=== PATIENT | female | born 1930 | race Caucasian/White ===

== ENCOUNTER → 2016-12-02 | Outpatient (CLI) | payer OTHER, BC ==
[2016-12-02 12:09] LABS: BASOPHILS # (AUTO) 0.05 10*3/UL; BASOPHILS % (AUTO) 0.6 % (0-1); EOSINOPHILS % (AUTO) 1.3 % (0-8); HEMATOCRIT 40.2 % (37.0-47.0); HEMOGLOBIN 13.4 g/dL (12.0-16.0); IMM GRAN % (AUTO) 0.5 % (0-5); IMM GRAN# (AUTO) 0.04 10*3/UL; LYMPHOCYTES # (AUTO) 1.03 10*3/uL; LYMPHOCYTES % (AUTO) 13.3 % (10-50); MEAN CORPUSCULAR HEMOGLOBIN 29.3 PG (27-31); MEAN CORPUSCULAR HGB CONC 33.3 g/dL (33-37); MEAN PLATELET VOLUME 10.2 FL (7.4-12.2); MONOCYTES # (AUTO) 0.62 10*3/UL (0.3-0.8); NEUTROPHILS # (AUTO) 5.89 10*3/UL; NEUTROPHILS % (AUTO) 76.3 % (50-80); RED BLOOD COUNT 4.57 10^6/uL (4.20-5.40); WHITE BLOOD COUNT 7.73 10^3/uL (4.8-10.8)
[2016-12-02 12:20] LABS: PLATELET MORPHOLOGY COMMENT NORMAL MORPHOLOGY (NORM)
[2016-12-02 12:25] LABS: BILIRUBIN,TOTAL 0.7 mg/dL (0.3-1.2); BUN/CREATININE RATIO 31.25 (6-20); CALCIUM 9.7 mg/dL (8.7-10.7); CREATININE 0.8 mg/dL (0.50-1.20); LDL CHOLESTEROL,CALCULATED 54.8 mg/dL; POTASSIUM 4.7 meq/L (3.8-5.2)
== END ==
LOC: MOB LAB 10:48
DX: E03.9 Hypothyroidism, unspecified (principal); E55.9 Vitamin D deficiency, unspecified
CPT/HCPCS: 36415; 80053; 80061; 82306; 84443; 85025

== ENCOUNTER 2016-12-05 08:32 | Emergency (ER) | payer OTHER, BC ==
[2016-12-05 08:46] VITALS: RESP 20; TEMP 98.2
--- NOTE | 2016-12-05 09:36 | PDOC ---
Fall HPI - General Chief Complaint: Fall Stated Complaint: BACK PAIN Date Seen by Provider: 12/05/16 Time Seen by Provider: 08:40 Source: POSITIVE: Patient Exam Limitations: POSITIVE: No limitations Nurse's Notes Reviewed & Considered: Yes - History of Present Illness Initial Comments: The patient is an 86-year-old female who presents to the emergency department with low back pain after a fall. She states that she has long-standing issues with balance and normally walks with assistance or with a walker. She states that she woke up in the middle of the night for 5 nights ago to go to the bathroom. She states that she lost her footing and fell. She did hit the back of her head however denies any loss of consciousness. After her fall she has increase in lower back pain. She has a history of previous compression fracture and some degree of chronic back pain. She was seen by Dr. Bui 3 days ago and prescribed Ultram. She states that this has not been helping for pain. She denies any radiation of pain down her legs. She does have some urinary incontinence issues which have been chronic. She denies any headache, neck pain or any other associated injuries or complaints. She does not take any blood thinner medications other than aspirin. Have you received a tetanus shot in the past 10 years?: Unknown - Patient Home Medications Home Medications: Home Medications Aspirin 1 tab PO PRN tab 07/12/13 Levothyroxine Sodium 1 tab PO QD #30 tab 09/16/16 Tramadol HCl 0.5 tab PO Q6H PRN #30 tab 12/02/16 Cholecalciferol (Vitamin D3) [Vitamin D3] 1 cap PO QD #30 cap 12/03/16 Diclofenac Sodium 50 mg PO Q12H PRN #20 tablet. 12/05/16 HYDROcodone/APAP 5/325 Tab [A[place] 5/325 Tab] 1 each PO Q6H PRN #20 tablet - Patient Allergies Allergies/Adverse Reactions: Allergies Allergy/AdvReac Type Severity Reaction Status Date / Time No Known Drug Allergies Allergy NOT Verified 12/05/16 08:39 APPLICABLE Past Medical History - heen HEENT History: Denies History Cardiovascular History: Denies History Respiratory History: Denies History Gastrointestinal History: Other (please comment) Additional Gastrointestinal History: CONSTIPATION Genitourinary History: Other (please comment) Additional Genitourinary History: INCONTINENCE Endocrine History: Hypothyroidism Musculoskeletal History: Back Pain, Back Injury, Other (please comment) Prosthesis or Implant: No Additional Musculoskeletal History: "BALANCE ISSUES" Neurological History: Seizures Blood Disorders: Denies History Psychiatric History: Anxiety Disorders History of Sexually Transmitted Diseases: No Obstetrical History: Denies History Cancer History: Denies History In Past Year Been Physically Harmed or Verbally Threatened: No History of MDRO: No History of Other Communicable Diseases: No Tobacco Use: Never Smoker Alcohol Use: None Substance Use Type: None Previous Surgical History: No Type / Date of Surgery: HYSTERECTOMY, CHOLECYSTECTOMY, ADRENAL GLAND REMOVAL, COLON RESECTION Anesthesia Reactions: No Malignant Hyperthermia: No Significant Family History: No pertinent family hx Past Medical History Reviewed: Reviewed - No Changes ROS - Limitations ROS Limitations: No Limitations (Review of systems otherwise noncontributory) Fall Physical Exam - General Appearance General Appearance: POSITIVE: Alert, Cooperative, No Acute Distress - HEENT HEENT: POSITIVE: Head Inspection Nml, Eyes Inspection Nml, Ears Inspection Nml - Neck Neck: POSITIVE: Non Tender, Trachea Midline - Respiratory / CVS Respiratory / CVS: POSITIVE: Breath Sounds Normal, No Respiratory Distress, Heart Sounds Normal, Regular Rate/Rhythm - Abdomen Abdomen: Soft: (All Quadrants), Denies Tenderness: (All Quadrants), No Distention: (All Quadrants) Additional Abdominal Details: Her pelvis is stable and nontender - Skin Skin: POSITIVE: Intact - Back Back: POSITIVE: Other (Examination of her lower back does reveal an area of ecchymosis to the left lower lumbar region, there is no obvious bony deformity or significant swelling) - Extremities Extremity Assessment: Normal ROM: (ALL), Normal Inspection: (ALL) Additional Extremities Details: No focal neurologic deficits in her legs Fall Progress - Results Reviewed by me Xrays/CTs/US Reviewed by me: Yes Radiology Findings: X-ray of the lumbar spine reveals advanced degenerative changes, she does have findings consistent with compression fracture of the L1 vertebrae which was present on a previous lumbar spine film from 2015. No acute fracture - Patient's Progress MDM / ED Course: X-ray findings were discussed with the patient and her family member. There is not appear to be any evidence of acute fracture. She was placed on diclofenac 50 mg twice a day as an anti-inflammatory and given prescriptions for Auxvasse as needed for pain. She is advised return to the emergency room if any worsening or change in symptoms. She'll follow-up with Dr. Bui in 5-7 days. - Consult Counseled: POSITIVE: Patient, Family, RE: Radiology Results, RE: DX, RE: Need for F/U Patient Care Time - Estimated PCT Patient Care Time (In Minutes): 15 Vital Signs - Recent Vital Signs Vital Signs: Vital Signs (Last 8 hours) Temp Pulse Resp BP Pulse Ox 12/05/16 08:34 98.2 F 81 20 127/80 92 - VS Reviewed Vital Signs Reviewed: Yes Discharge Clinical Impression: Low back pain Condition: Fair Prescriptions / Orders: Diclofenac Sodium 50 mg PO Q12H PRN #20 tablet. PRJustin Reason: Pain HYDROcodone/APAP 5/325 Tab [A[place]se 5/325 Tab] 1 each PO Q6H PRN #20 tablet PRN Reason: Pain Patient Instructions Given at Discharge: Back Pain (ED) Additional Instructions: The x-ray of your back done in the emergency room today does show an old compression fracture in your lower back as well as arthritic changes, no evidence of new fractures. Recommend diclofenac 50 mg twice a day as needed for pain. In addition your been prescribed Auxvasse 5/325 which he can take one every 4-6 hours as needed for pain. This medication may make you sleepy and should probably only be taken at night. Return to the emergency room if increased pain, numbness or weakness in her legs, any worsening or change in symptoms. Recommend follow-up with Dr. Bui in 5-7 days. Follow Up With: RAHEEM BUI [Primary Care Provider] -
--- NOTE | 2016-12-05 09:41 | DI ---
LUMBAR SPINE SERIES, 12/05/2016 8:45 AM: Clinical History: Injury. The patient fell. Previous Exam: 10/22/2014. Upright AP and lateral views are submitted. Since the previous exam, the patient has developed osteop orotic compression fractures of T11 and T12 with approximately 50% loss of height. The previous study showed a compression fracture of L1 with loss of height greater than 50% in this fracture now is hea led but there has been progressive loss of height by 80-90%. No definite acute compression fracture i s identified. The lumbar disc spaces are of normal height. There is a grade 1 spondylolisthesis at L4 -5. Degenerative arthritic changes are present in all of the apophyseal joints bilaterally but most s everely between L3-4 and L5-S1. The pedicles and remaining posterior elements are unremarkable. Both SI joints are normal. Readin. No definite acute fracture is identified but this patient does have osteoporosis. 2. There are osteoporotic compression fractures of T11, T12, and L1. By definition, this patient has severe osteoporosis. 3. Grade 1 spondylolisthesis at L4-5 with degenerative arthritic changes in the apophyseal joints mo st severely between L3-4 and L5-S1.
== END 2016-12-05 09:49 | disposition home or self-care (01) ==
LOC: ER 08:32
DX: M54.5 Low back pain (principal); W18.39XA Other fall on same level, initial encounter
CPT/HCPCS: 72100; 99282

== ENCOUNTER → 2017-02-05 | Outpatient (CLI) | payer OTHER, BC ==
[2017-02-05 11:29] LABS: HEMATOCRIT 43.2 % (37.0-47.0); HEMOGLOBIN 14.1 g/dL (12.0-16.0); MEAN CORPUSCULAR HEMOGLOBIN 28.7 PG (27-31); MEAN CORPUSCULAR HGB CONC 32.6 g/dL (33-37); MEAN CORPUSCULAR VOLUME 87.8 FL (81-99); MEAN PLATELET VOLUME 10.1 FL (7.4-12.2); RED BLOOD COUNT 4.92 10^6/uL (4.20-5.40)
[2017-02-05 11:51] LABS: CALCIUM 9.4 mg/dL (8.7-10.7); SERUM ALBUMIN 4.2 g/dL (3.5-4.8)
[2017-02-06 02:58] LABS: VITAMIN D 25-HYDROXY 22.5 NG/ML (30-100)
== END ==
LOC: MOB LAB 10:07
PROVIDERS: ATTEND Nurse Practitioner
DX: M80.88XA Other osteoporosis with current pathological fracture, vertebra(e), initial encounter for fracture (principal)
CPT/HCPCS: 36415; 80053; 82306; 83970; 85027

== ENCOUNTER → 2017-03-17 | Outpatient (CLI) | payer OTHER, BC ==
--- NOTE | 2017-03-17 23:01 | DI ---
MRI CERVICAL SPINE W/O CN,03/17/2017 10:28 AM: Clinical History: Analysis artery and cervical spondylosis. Previous Exam: None at this facility. Findings: Multiplanar MR images are obtained through the cervical spine without contrast. Bony alignment is anatomic. No fractures are seen. There is marrow edema and some compressions are an d deformities involving the T5 vertebral body. There is also some compression of the first thoracic v ertebral body with some mild edema. The spinal cord descends normally with normal course, caliber and signal characteristics. There is a large area of low intensity just posterior to the third thoracic vertebral body extending into the thecal sac and causing some moderate central canal stenosis. The major vascular flow voids are unremarkable. The posterior fossa is unremarkable. Individual intervertebral disc spaces: C2/3: There is some facet hypertrophy and mild uncovertebral joint osteophyte formation on the right contributing to mild right neuroforaminal narrowing. There is no central canal nor left neuroforamina l narrowing. C3/4: There is some disc desiccation, annular fissuring and a broad-based disc bulge with some uncove rtebral joint and facet hypertrophy contributing to mild to moderate central canal stenosis with mode rate to severe left and mild right neuroforaminal narrowing. C4/5: There is disc desiccation, mild facet hypertrophy and uncovertebral osteophytes contributing to mild central canal stenosis with moderate bilateral neuroforaminal narrowing. C5/6: There is disc desiccation, and a 3 mm broad-based disc bulge with some uncovertebral joint oste ophyte formation and some facet hypertrophy contributing to mild to moderate central canal stenosis w ith moderate to severe left and moderate right neuroforaminal narrowing. C6/7: No significant stenosis. C7/T1: There is a broad-based disc bulge without neural foraminal narrowing. Impression: C2/3: There is some facet hypertrophy and mild uncovertebral joint osteophyte formation on the right contributing to mild right neuroforaminal narrowing. There is no central canal nor left neuroforamina l narrowing. C3/4: There is some disc desiccation, annular fissuring and a broad-based disc bulge with some uncove rtebral joint and facet hypertrophy contributing to mild to moderate central canal stenosis with mode rate to severe left and mild right neuroforaminal narrowing. C4/5: There is disc desiccation, mild facet hypertrophy and uncovertebral osteophytes contributing to mild central canal stenosis with moderate bilateral neuroforaminal narrowing. C5/6: There is disc desiccation, and a 3 mm broad-based disc bulge with some uncovertebral joint oste ophyte formation and some facet hypertrophy contributing to mild to moderate central canal stenosis w ith moderate to severe left and moderate right neuroforaminal narrowing. 13 x 8 mm calcification just posterior to the third thoracic vertebral body most likely representing a dystrophic calcification. Compression deformities worst at the T5 level where there is reactive marrow edema. Consider MRI thor acic spine for further evaluation as this would also evaluate the low intensity area at the T3 level.
== END ==
LOC: MRI 10:18
PROVIDERS: ATTEND Nurse Practitioner
DX: M47.812 Spondylosis without myelopathy or radiculopathy, cervical region (principal); R26.81 Unsteadiness on feet; M50.11 Cervical disc disorder with radiculopathy, high cervical region; M50.121 Cervical disc disorder at C4-C5 level with radiculopathy; M47.22 Other spondylosis with radiculopathy, cervical region
CPT/HCPCS: 72141

== ENCOUNTER 2017-04-16 09:05 | Inpatient (IN) | payer OTHER, BC ==
[2017-04-16] MEDS ORDERED: NORMAL SALINE 10 ML SYRINGE FLUSH IVP PRN ×2 (09:39→12:43)
[2017-04-16] MEDS ORDERED: Sodium Chloride 0.9% 1,000 ML PRIMARY IV ONE (09:39)
[2017-04-16 09:55] LABS: BASOPHILS # (AUTO) 0.08 10*3/UL; BASOPHILS % (AUTO) 0.9 % (0-1); EOSINOPHILS # (AUTO) 0.06 10*3/UL; EOSINOPHILS % (AUTO) 0.7 % (0-8); HEMATOCRIT 42.4 % (37.0-47.0); HEMOGLOBIN 14.1 g/dL (12.0-16.0); LYMPHOCYTES # (AUTO) 0.88 10*3/uL; MEAN CORPUSCULAR HEMOGLOBIN 29.2 PG (27-31); MEAN CORPUSCULAR HGB CONC 33.3 g/dL (33-37); MEAN CORPUSCULAR VOLUME 87.8 FL (81-99); MEAN PLATELET VOLUME 9.6 FL (7.4-12.2); MONOCYTES # (AUTO) 0.86 10*3/UL (0.3-0.8); MONOCYTES % (AUTO) 9.4 % (5-15); NEUTROPHILS # (AUTO) 7.23 10*3/UL; NEUTROPHILS % (AUTO) 79.1 % (50-80); RED BLOOD COUNT 4.83 10^6/uL (4.20-5.40)
--- NOTE | 2017-04-16 09:56 | EKG ---
[address] [address] Measurements Intervals [place] Rate: 71 P: 20 AK: 145 QRS: -1 QRSD: 94 T: 17 QT: 408 QTc: 431 Interpretive Statements SINUS RHYTHM Compared to ECG 12/09/2013 08:31:53 Atrial abnormality no longer present Myocardial infarct finding no longer present Electronically Signed On 04-18-17 16:23:35 MDT by Emigdio Najera [id number]
[2017-04-16 10:01] LABS: PLATELET MORPHOLOGY COMMENT NORMAL MORPHOLOGY (NORM); RBC MORPHOLOGY COMMENT NORMAL MORPHOLOGY (NORM); WBC MORPHOLOGY COMMENT NORMAL MORPHOLOGY (NORM)
[2017-04-16 10:10] LABS: BUN/CREATININE RATIO 28.75 (6-20); C-REACTIVE PROTEIN 2.1 mg/dL (0.0-0.9); CALCIUM 9.5 mg/dL (8.7-10.7); MAGNESIUM 1.8 mg/dL (1.6-2.4); SERUM ALBUMIN 4.4 g/dL (3.5-4.8)
[2017-04-16 10:19] LABS: CREATINE KINASE MB 5.18 NG/ML (0.00-5.00); TROPONIN I 0.044 ng/mL (< 0.040)
[2017-04-16 10:38] LABS: COLOR,URINE YELLOW; URINE SAMPLE TYPE CATH SPECIMEN
[2017-04-16 10:39] LABS: AMPHETAMINE SCREEN NEGATIVE (NEG); BILIRUBIN,URINE NEGATIVE (NEG); CANNABINOID SCREEN,URINE NEGATIVE (NEG); CLARITY,URINE CLEAR (CLEAR); COCAINE SCREEN NEGATIVE (NEG); GLUCOSE, URINE (UA) NEGATIVE (NEG); METHADONE URINE SCREEN NEGATIVE (NEG); METHAMPHETAMINES SCREEN,URINE NEGATIVE (NEG); NITRATE,URINE NEGATIVE (NEG); OCCULT BLOOD,URINE NEGATIVE (NEG); OPIATE SCREEN,URINE NEGATIVE (NEG); PROTEIN,URINE NEGATIVE (NEG); URINE SPECIFIC GRAVITY - MAN 1.019; UROBILINOGEN,URINE 0.2 EU/dL (0.2)
--- NOTE | 2017-04-16 11:28 | DI ---
CT HEAD SCAN WITHOUT IV CONTRAST, 04/16/2017 9:41 AM : Clinical History: Fall. Headaches. Previous Exam: None at this facility. Scans are obtained from the foramen magnum to the vertex without IV contrast. The fourth ventricle is of normal size, shape, position and contour. The third and lateral ventricles are moderately dilated but are otherwise normal. There are multiple punctate periventricular white m atter lucencies bilaterally that extend into the watershed territory, consistent with small vessel is chemic disease. This amount of ischemic disease is appropriate for the patient's age. There is severe cerebral and cerebellar atrophy. There are no extracerebral mantles or shift of the midline structur es. Bone window evaluation is normal. The paranasal sinuses are normal. READIN. There is no evidence of an acute intracranial hemorrhagic focus. 2. Small vessel ischemic disease. 3. Severe cerebellar and cerebral atrophy.
--- NOTE | 2017-04-16 11:39 | DI ---
PA /LATERAL CHEST X-RAY, 04/16/2017 9:39 AM : Clinical History: Fall. Previous Exam: None at this facility. There is no acute soft tissue or bony abnormality. There is osteoporosis with multiple compression fr actures in the lower thoracic spine indicating the patient by definition has severe osteoporosis. The re is cardiomegaly without CHF. Since the previous exam, the patient has developed significant left a trial enlargement suggesting mitral valvular disease. Lungs are clear. Mediastinal structures are nor mal. There are no pulmonary nodules. Readin. There is no acute infiltrate or effusion. 2. Cardiomegaly without CHF. Interval development of significant left atrial enlargement. 3. Severe osteoporosis
--- NOTE | 2017-04-16 12:09 | EKG ---
[address] [address] Measurements Intervals [place] Rate: 72 P: 6 CT: 134 QRS: 13 QRSD: 90 T: 47 QT: 424 QTc: 448 Interpretive Statements SINUS RHYTHM Compared to ECG 04/16/2017 10:00:48 No significant changes Electronically Signed On 04-18-17 16:23:50 MDT by Emigdio Najera [id number]
[2017-04-16] MEDS ORDERED: ACETAMINOPHEN 325 MG TABLET PO PRN (12:43)
[2017-04-16] MEDS ORDERED: LIDOCAINE W/ SODIUM BICARB 0.5 ML SYR SUBD PRN (12:43)
[2017-04-16] MEDS ORDERED: ASPIRIN 81 MG (BABY) CHEWABLE TABLET PO ONE (12:43)
[2017-04-16] MEDS ORDERED: ENOXAPARIN SODIUM 60 MG/0.6 ML SYRINGE SUBCUT SCH (13:00)
--- NOTE | 2017-04-16 14:12 | PDOC ---
History and Physical - History of Present Illness Date and Time of Service: 04/16/2017, 1409 Chief Complaint: Fall History of Present Illness: This very pleasant 87-year-old female that has hypothyroidism and is on Synthroid replacement for that who presents to the hospital having had a fall last night. She states she was trying to reach her Gatorade bottle and fell off of her bed and could not get up. She was able to crawl to the phone at some point this morning and called her daughter for assistance. They could not get her up so they called the ambulance. She apparently had a fall yesterday earlier it was placed in bed by one of her friends. She has a significant other that occasionally his living with her that was not present during this fall last night. The patient denies any weakness on one side or the other, slurred speech, and a head CT scan was negative for any acute bleed. I did notice on her laboratory data that her CK-MB and her troponin were mildly elevated. She denies any chest pain. Her chest x-ray was negative for any congestive heart failure in the EKG was negative for any acute myocardial event. The patient has a bruise knee on the left side but she denies any pain there. I think her history is somewhat limited by mild confusion and probable mild dementia. No other exacerbating factors were noted. The patient does admit to falling frequently even with her walker at home. No fevers, chills, cough, nausea or vomiting, diarrhea, or other infectious symptoms. There were no other exacerbating factors identified. The patient denied any syncopal or presyncopal symptoms. Past Medical History Medical History: 1. Hypothyroidism. 2. Frequent falls. 3. Vitamin D deficiency Surgical History: Patient really cannot give me the best surgical history, I got this from review of the medical record: 1. Cholecystectomy. 2. Right carpal tunnel release in 2012. 3. Colon polyps. 4. Bilateral cataract extraction in 2007. 5. Hysterectomy with BSO at age 29. 6. Possible partial colectomy in 2002. 7. Appendectomy Pertinent Family History: Patient has a sister that has gastric cancer, and a sister that recently of a blood clot Past Social History: Has 2 children. Lives alone but does have a significant other that occasionally lives with her as well. Tobacco Use: Never Smoker Substance Use Type: None Alcohol Use: None Medication / Allergies Home Medications: Home Medications Medication Instructions Recorded Confirmed Type Levothyroxine Sodium [Synthroid] 50 mcg PO DAILY 04/16/17 04/16/17 History Allergies/Adverse Reactions: Allergies Allergy/AdvReac Type Severity Reaction Status Date / Time No Known Drug Allergies Allergy NOT Verified 04/16/17 09:09 APPLICABLE Review of Systems - Review of Systems All Systems: Reviewed & No Additional Complaints Except as Stated ROS Unobtainable: Due to Mental Status (I think overall the review of systems is limited by what I suspect his underlying early dementia. The patient was repetitive in her history and could not provide all the details of her systems. I tried to review best when I could and those results are noted below.) - Respiratory Respiratory: REPORTS: Negative System Review - Cardiovascular Cardiovascular: REPORTS: Negative System Review - Musculoskeletal Musculoskeletal: REPORTS: Back Pain (She uses a heating pad for back pain. She states this helps her back pain significantly) - Neurological Neurologic: REPORTS: Weakness, Difficulty Walking (Even with walker), Other ( Frequent falls) - Additonal Details Additional ROS Details: Has hypothyroidism that she takes Synthroid for Exam - Vitals Vital Signs: Vital Signs Temperature 97.9 F Temperature Source Axillary Pulse Rate [Pulse Oximeter] 69 Pulse Rate 73 Respiratory Rate 12 Blood Pressure [Right Arm] 136/76 Blood Pressure 124/70 Pulse Ox 97 Oxygen Delivery Method Room Air Height 4 ft 11 in Weight 117 lb 12.8 oz - General General Appearance: POSITIVE: No Acute Distress, Cooperative - Head Head Exam: POSITIVE: Normal Inspection, Normocephalic, Atraumatic Additional Head Exam Details: Wearing sunglasses - Eye Eye Exam: POSITIVE: No Scleral Icterus - ENT ENT Exam: POSITIVE: Mucous Membranes Moist - Neck Neck Exam: POSITIVE: Normal Inspection, No Tenderness, No Thyromegaly - Respiratory Respiratory Exam: POSITIVE: Clear to Auscultation - Bilaterally, Breathing Non Labored, Normal to Percussion and Palpation - Cardiovascular Cardiovascular Exam: POSITIVE: RRR, No Murmur, No Clicks, No Gallops, No Rubs, No JVD - GI/Abdominal GI/Abdominal Exam: POSITIVE: Normal Bowel Sounds, Non Tender, Non Distended, Soft - Rectal Rectal Exam: POSITIVE: Deferred - External Exam: POSITIVE: Deferred Exam: POSITIVE: Deferred - Extremities Extremities Exam: POSITIVE: No Clubbing Present, No Edema Present, No Cyanosis Present Additional Extremities Exam Details: Bruising and ecchymosis around the left knee, no effusion. This is attributed to crawling to the phone and falling last night. No evidence of skin breakdown on remaining skin exam. - Back Back Exam: POSITIVE: Normal Inspection, No CVA Tenderness - Neurological Neurological Exam: POSITIVE: Alert, Oriented x 3 (Patient was oriented to place , time, and realized that she had fallen but more significant in depth view of the hospital stay was lacking.), No Facial Droop, Speech Intact / Clear, Moves All Extremities Equally - Psychiatric Psychiatric Exam: POSITIVE: Normal Affect, Normal Mood - Integumentary Additional Integumentary Exam Details: Bruising as noted above on left knee Results - Labs CBC and BMP: 04/16/17 09:51 04/16/17 09:51 Labs - Last 24 Hours: Laboratory Results 04/16/17 04/16/17 Range/Units 09:51 10:20 WBC 9.14 (4.8-10.8) 10^3/uL RBC 4.83 (4.20-5.40) 10^6/uL Hgb 14.1 (12.0-16.0) g/dL Hct 42.4 (37.0-47.0) % MCV 87.8 (81-99) FL MCH 29.2 (27-31) PG MCHC 33.3 (33-37) g/dL RDW Std Deviation 43.2 (39-50) fL RDW Coeff of [place] 13.7 (11.5-14.5) % Plt Count 278 (140-350) 10*3/uL MPV 9.6 (7.4-12.2) FL Immature Gran % (Auto) 0.3 (0-5) % Neut % (Auto) 79.1 (50-80) % Lymph % (Auto) 9.6 L (10-50) % [place] % (Auto) 9.4 (5-15) % Eos % (Auto) 0.7 (0-8) % Baso % (Auto) 0.9 (0-1) % Immature Gran # (Auto) 0.03 10*3/UL Neut # (Auto) 7.23 10*3/UL Lymph # (Auto) 0.88 10*3/uL [place] # (Auto) 0.86 H (0.3-0.8) 10*3/UL Eos # (Auto) 0.06 10*3/UL Baso # (Auto) 0.08 10*3/UL WBC Morphology Comment Normal morphology (NORM) Plt Morphology Comment Normal morphology (NORM) RBC Morph Comment Normal morphology (NORM) Sodium 144 (135-145) meq/L Potassium 3.9 (3.8-5.2) meq/L Chloride 108 (98-112) meq/L Carbon Dioxide 26 (23-33) meq/L Anion Gap 10 (5-20) BUN 23 H (7-22) mg/dL Creatinine 0.8 (0.50-1.20) mg/dL Estimated GFR (>60 ml/min/1.73m(2)) BUN/Creatinine Ratio 28.75 H (6-20) Glucose 101 (78-110) mg/dL Calculated Osmolality 301.0 H (267-292) mOsm/kg Calcium 9.5 (8.7-10.7) mg/dL Magnesium 1.8 (1.6-2.4) mg/dL Total Bilirubin 1.0 (0.3-1.2) mg/dL AST 28 (8-39) IU/L ALT 30 (9-52) IU/L Alkaline Phosphatase 66 (38-126) IU/L Total Creatine Kinase 224 H (30-136) IU/L CK-MB (CK-2) 5.18 H (0.00-5.00) NG/ML Troponin I 0.044 H (< 0.040) ng/mL C-Reactive Protein 2.1 H (0.0-0.9) mg/dL Total Protein 7.7 (6.1-8.0) g/dL Albumin 4.4 (3.5-4.8) g/dL Globulin 3.3 (2.50-4.10) g/dL Albumin/Globulin Ratio 1.30 (1.3-2.0) mg/g Ur Collection Type Cath specimen Urine Color Yellow Urine Clarity Clear (CLEAR) Urine pH 5.0 (5.0-8.5) Ur Specific [place] 1.015 (1.005-1.030) U Specif Grav (Refrac) 1.019 Urine Protein Negative (NEG) mg/dl Urine Glucose (UA) Negative (NEG) mg/dL Urine Ketones Trace (NEG) Urine Occult Blood Negative (NEG) Urine Nitrate Negative (NEG) Urine Bilirubin Negative (NEG) Urine Urobilinogen 0.2 (0.2) EU/dL Ur Leukocyte Esterase Negative (NEG) Ur Culture Indicated? Culture not set Urine Opiates Screen Negative (NEG) Ur Buprenorphine Negative (NEG) Ur Oxycodone Screen Negative (NEG) Urine Methadone Screen Negative (NEG) Ur Propoxyphene Screen Negative (NEG) Barbiturate Screen Negative (NEG) U Tricyclic Antidepress Negative (NEG) Phencyclidine Screen Negative (NEG) Amphetamines Screen Negative (NEG) U Methamphetamines Scrn Negative (NEG) Benzodiazepines Screen Negative (NEG) Cocaine Screen Negative (NEG) U Marijuana (THC) Screen Negative (NEG) - EKG Data -: EKG Interpreted by Me Rate: Normal EKG Shows Normal: Sinus Rhythm - Imaging Status: Image Reviewed by Me (Chest x-ray, on my view, appears negative for acute cardiopulmonary disease process, no pneumonia. CT scan, on my view of the head, appears negative for any acute bleed. There is probably some atrophy there.) Assessment and Plan - Patient Problems (1) Elevated troponin Current Visit: Yes Status: Acute Comment: Probable and possible acute coronary syndrome. Need to trend more troponins. (2) Hypothyroidism Current Visit: Yes Status: Acute Qualifiers: Hypothyroidism type: acquired Qualified Description: Acquired hypothyroidism Qualifier Code(s): (E03.9) Hypothyroidism, unspecified (3) Compression fracture Current Visit: Yes Status: Acute (4) Cervical stenosis of spinal canal Current Visit: Yes Status: Acute (5) Falls frequently Current Visit: Yes Status: Acute - Assessment / Plan Additional Assessment/Plan Details: Admit the patient in the intensive care unit if she could very well be having an acute coronary syndrome. At her age of 87, premorbid physical conditioning, I don't know that we shouldn't do any extensive stenting or cardiac workup otherwise, but we will let the labs help us determine the nature of that. I called the patient's daughter, Charlotte, and I have not been able to get ahold of her yet to discuss the plan with her. Check B12 level as it was quite low in 2014. Replace vitamin D. PT and OT to evaluate and treat for weakness and deconditioning. Home evaluation in my mind needs to be done as well. It is quite possible that the patient will not be deemed safe to return home based on her significant increase in falls. On my review of prior spine imaging studies, it is clear that this patient has osteoporosis, multiple thoracic, and lumbar compression fractures. She also has cervical spinal stenosis. Cervical spinal stenosis is probably related to the falls however, the patient is not a surgical candidate with severe osteoporosis or surgical therapy for the spinal issues in the cervical region. Falls probably are also not enhanced in any means by the glaucoma. It is likely this patient may need fdc facility but we will discuss with her daughter further. DO NOT RESUSCITATE/DO NOT INTUBATE For presumed acute coronary syndrome, given aspirin, Lovenox, beta pepe, and check the troponin labs and trend out. It is encouraging the patient does not have chest pain, but it's difficult to know how much to chest but history given the patient's age.
[2017-04-16] MEDS ORDERED: CHOLECALCIFEROL 1000 IU TABLET PO ONE (14:22)
[2017-04-16] MEDS ORDERED: ACETAMINOPHEN 500 MG TABLET PO PRN (18:17)
[2017-04-16] MEDS ORDERED: diphenhydrAMINE 25 MG CAPSULE PO PRN (18:18)
--- NOTE | 2017-04-16 19:17 | PDOC ---
General Adult HPI - General Chief Complaint: Fall Stated Complaint: FELL OUT OF BED/WEAKNESS Date Seen by Provider: 04/16/17 Time Seen by Provider: 09:20 Source: POSITIVE: Patient, EMS, Other (daughter) Exam Limitations: POSITIVE: No limitations Nurse's Notes Reviewed & Considered: Yes EMS Report Reviewed & Considered: Verbal - History of Present Illness Initial Comment: The patient is an 87-year-old female. She is brought to the emergency room by ambulance. Patient states that last night, apparently several hours [employer]ACH[employer]PER[employer], she dropped a Gatorade bottle between her bed and the wall. She bent down to retrieve the bottle and then was not able to get up. She spent the night on the floor. Eventually she managed to crawl to a phone and called her daughter. Her daughter then went to the patient's residence. The patient's daughter was not able to get the patient to stand, so the daughter called the ambulance. Patient normally lives with a soup mixer, who was away at his cabin. Patient states that yesterday she fell onto the floor and was not able to get up. She contacted a friend who came over and helped her up and put her to bed. The patient's daughter states that the patient is falling frequently and is unable to care for herself. Under the best of circumstances she is able to get around marginally with the 8 of a walker. Patient states that she has some "weakness "of both legs. No focal motor deficits. She states she has a problem with chronic headaches. She denies any recent head trauma. No neck or back pain. No chest or abdominal pain. No diarrhea, vomiting, melena, hematochezia, hematemesis, dysuria or hematuria. She denies any cough. No fevers or chills. Patient states she is on no medications except Synthroid. No known allergies. She states that she has for considerable period of time had difficulty with "poor balance". Have you received a tetanus shot in the past 10 years?: Unknown Body Location Affected: REPORTS: Lower Extremity (L) (As above), Lower Extremity (R) (Some erythema to both knees from crawling around on the floor last night and this morning.), Other Timing: REPORTS: Abrupt Duration: <24 hours Severity: Moderate Quality: REPORTS: Other (Some discomfort anterior aspects of both knees from crawling on the floor as above) Context: REPORTS: None Modifying Factors: improves with: Nothing Similar Symptoms Previously: Yes Recent Care Received: REPORTS: Recently Seen, Treated by MD (Has been seen by a nurse practitioner in [place] who ordered a MRI of the cervical spine last week.) Any Prior Injuries Related to Current Complaint?: No - Patient Home Medications Home Medications: Home Medications Levothyroxine Sodium [Synthroid] 50 mcg PO DAILY 04/16/17 - Patient Allergies Allergies/Adverse Reactions: Allergies Allergy/AdvReac Type Severity Reaction Status Date / Time No Known Drug Allergies Allergy NOT Verified 04/16/17 09:09 APPLICABLE Past Medical History - heen HEENT History: Other (please comment) Additional HEENT History: eye lids do not open well- wears dark glasses. Cardiovascular History: Denies History Respiratory History: Denies History Gastrointestinal History: Other (please comment) Additional Gastrointestinal History: CONSTIPATION Genitourinary History: Other (please comment) Additional Genitourinary History: INCONTINENCE Endocrine History: Hypothyroidism Musculoskeletal History: Back Pain, Back Injury, Muscle Weakness, Physical Limitation, Other (please comment) Prosthesis or Implant: No Additional Musculoskeletal History: "BALANCE ISSUES", COMPRESSED SPINE DISK, DIFFICULTIES WALKING Neurological History: Denies History Blood Disorders: Denies History Psychiatric History: Anxiety Disorders History of Sexually Transmitted Diseases: No Female Reproductive History: Hysterectomy Cancer History: Denies History In Past Year Been Physically Harmed or Verbally Threatened: No History of MDRO: Unknown History of Other Communicable Diseases: No Tobacco Use: Never Smoker Alcohol Use: Rarely Substance Use Type: None Previous Surgical History: Yes Type / Date of Surgery: HYSTERECTOMY, CHOLECYSTECTOMY, ADRENAL GLAND REMOVAL, COLON RESECTION, APPENDECTOMY Anesthesia Reactions: No Malignant Hyperthermia: No Family History of Malignant Hyperthermia: No Significant Family History: No pertinent family hx Past Medical History Reviewed: Reviewed - No Changes ROS - Limitations ROS Limitations: No Limitations Constitution: REPORTS: Denies Symptoms Cardiovascular: REPORTS: Denies Cardiac Symptoms Respiratory: REPORTS: Denies Resp Symptoms Neurological: REPORTS: Weakness (Generalized "weakness ") Gastrointestinal: REPORTS: Denies GI Symptoms Endocrine: REPORTS: Denies Symptoms Musculoskeletal: REPORTS: Denies MS Symptoms Genitourinary: REPORTS: Denies Symptoms Eyes: REPORTS: Denies Symptoms ENT: REPORTS: Denies Symptoms Skin: REPORTS: Denies Skin Symptoms Lympathic: REPORTS: Denies Lympathic Symptoms Immunologic: POSITIVE: Denies Symptoms Psychiatric: POSITIVE: Denies Psych Symptoms General Adult Exam - General Appearance General Appearance: POSITIVE: Alert, Cooperative, No Acute Distress. NEGATIVE: No Evidence of Trauma (Some erythema to anterior aspects of both knees from crawling on the floor last night and this morning) - HEENT HEENT: POSITIVE: Head Inspection Nml, Eyes Inspection Nml, Ears Inspection Nml, Nose Inspection Nml, Oral/Dental Inspect. Nml, Pharynx Inspect. Nml, PERRL, EOMI - Pupils Pupil Size: 4 mm: Bilateral (PERRLA) - Neck Neck: POSITIVE: Normal Inspection, Thyroid Normal - Respiratory Respiratory: POSITIVE: No Respiratory Distress, Breath Sounds Normal, Chest Non- Tender - Cardiovascular Cardiovascular: POSITIVE: Regular Rate & Rhythm, No Murmur, No Gallop, PMI Normal Peripheral Pulses: Radial (R): 2+, Radial (L): 2+, Dorsalis-pedis (R): 2+, Dorsalis-pedis (L): 2+ - Abdomen Abdomen: Soft: (All Quadrants), Normal Bowel Sounds: (All Quadrants), Denies Tenderness: (All Quadrants), No Splenomegaly: (All Quadrants), No Hepatomegaly: (All Quadrants), No Guarding: (All Quadrants), No Rebound: (All Quadrants), No Palpable Pulse: (All Quadrants), No Palpabale Mass: (All Quadrants), No Distention: (All Quadrants), No Rigidity: (All Quadrants) - Back Back: POSITIVE: Normal Inspection - Skin Skin: POSITIVE: Erythema (Anterior aspects of both knees) - Extremities Extremity: Non-Tender: (All Extremities), Normal ROM: (All Extremities), Normal Inspection: (All Extremities) - Neurological / Psychological Neurological: POSITIVE: 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 CT scan of head shows age-related changes only. Lab Results Reviewed: Yes Lab Results:: Laboratory Results 04/16/17 04/16/17 Range/Units 09:51 10:20 WBC 9.14 (4.8-10.8) 10^3/uL RBC 4.83 (4.20-5.40) 10^6/uL Hgb 14.1 (12.0-16.0) g/dL Hct 42.4 (37.0-47.0) % MCV 87.8 (81-99) FL MCH 29.2 (27-31) PG MCHC 33.3 (33-37) g/dL RDW Std Deviation 43.2 (39-50) fL RDW Coeff of [place] 13.7 (11.5-14.5) % Plt Count 278 (140-350) 10*3/uL MPV 9.6 (7.4-12.2) FL Immature Gran % (Auto) 0.3 (0-5) % Neut % (Auto) 79.1 (50-80) % Lymph % (Auto) 9.6 L (10-50) % [place] % (Auto) 9.4 (5-15) % Eos % (Auto) 0.7 (0-8) % Baso % (Auto) 0.9 (0-1) % Immature Gran # (Auto) 0.03 10*3/UL Neut # (Auto) 7.23 10*3/UL Lymph # (Auto) 0.88 10*3/uL [place] # (Auto) 0.86 H (0.3-0.8) 10*3/UL Eos # (Auto) 0.06 10*3/UL Baso # (Auto) 0.08 10*3/UL WBC Morphology Comment Normal morphology (NORM) Plt Morphology Comment Normal morphology (NORM) RBC Morph Comment Normal morphology (NORM) Sodium 144 (135-145) meq/L Potassium 3.9 (3.8-5.2) meq/L Chloride 108 (98-112) meq/L Carbon Dioxide 26 (23-33) meq/L Anion Gap 10 (5-20) BUN 23 H (7-22) mg/dL Creatinine 0.8 (0.50-1.20) mg/dL Estimated GFR (>60 ml/min/1.73m(2)) BUN/Creatinine Ratio 28.75 H (6-20) Glucose 101 (78-110) mg/dL Calculated Osmolality 301.0 H (267-292) mOsm/kg Calcium 9.5 (8.7-10.7) mg/dL Magnesium 1.8 (1.6-2.4) mg/dL Total Bilirubin 1.0 (0.3-1.2) mg/dL AST 28 (8-39) IU/L ALT 30 (9-52) IU/L Alkaline Phosphatase 66 (38-126) IU/L Total Creatine Kinase 224 H (30-136) IU/L CK-MB (CK-2) 5.18 H (0.00-5.00) NG/ML Troponin I 0.044 H (< 0.040) ng/mL C-Reactive Protein 2.1 H (0.0-0.9) mg/dL Total Protein 7.7 (6.1-8.0) g/dL Albumin 4.4 (3.5-4.8) g/dL Globulin 3.3 (2.50-4.10) g/dL Albumin/Globulin Ratio 1.30 (1.3-2.0) mg/g Ur Collection Type Cath specimen Urine Color Yellow Urine Clarity Clear (CLEAR) Urine pH 5.0 (5.0-8.5) Ur Specific [place] 1.015 (1.005-1.030) U Specif Grav (Refrac) 1.019 Urine Protein Negative (NEG) mg/dl Urine Glucose (UA) Negative (NEG) mg/dL Urine Ketones Trace (NEG) Urine Occult Blood Negative (NEG) Urine Nitrate Negative (NEG) Urine Bilirubin Negative (NEG) Urine Urobilinogen 0.2 (0.2) EU/dL Ur Leukocyte Esterase Negative (NEG) Ur Culture Indicated? Culture not set Urine Opiates Screen Negative (NEG) Ur Buprenorphine Negative (NEG) Ur Oxycodone Screen Negative (NEG) Urine Methadone Screen Negative (NEG) Ur Propoxyphene Screen Negative (NEG) Barbiturate Screen Negative (NEG) U Tricyclic Antidepress Negative (NEG) Phencyclidine Screen Negative (NEG) Amphetamines Screen Negative (NEG) U Methamphetamines Scrn Negative (NEG) Benzodiazepines Screen Negative (NEG) Cocaine Screen Negative (NEG) U Marijuana (THC) Screen Negative (NEG) EKG Interpreted/Reviewed By Me:: Yes (normal) EKG Interpretation:: POSITIVE: Normal Sinus Rhythm, Normal Rate, Normal Intervals, Normal [place], Normal QRS, Normal ST/T - Patient's Progress Pain Medication Addressed: POSITIVE: Not Applicable School/Work Release Addressed: POSITIVE: Not Applicable Re-Examine Time: 11:55 Status: POSITIVE: Unchanged, Re-Examined Antibiotics Given: No - Consult Consult (If Yes, Name of Consulting MD & Time Called): Yes (Dr. Watson, hospitalist, [id number]) Counseled: POSITIVE: Patient, Family, RE: Lab Results, RE: Radiology Results, RE : DX, RE: Need for F/U Patient Care Time - Estimated PCT Patient Care Time (In Minutes): 55 Vital Signs - Recent Vital Signs Vital Signs: Vital Signs (Last 8 hours) Temp Pulse Pulse Resp BP BP Pulse Ox 04/16/17 19:00 78 04/16/17 18:27 97.4 F 83 16 101/54 95 04/16/17 17:59 66 10 L 121/59 95 04/16/17 16:54 84 23 97 04/16/17 16:44 72 21 04/16/17 16:00 97.7 F 72 21 126/64 98 04/16/17 15:16 67 12 96 04/16/17 15:00 67 96 04/16/17 14:17 73 19 127/70 97 04/16/17 12:44 69 12 04/16/17 12:43 97.9 F 61 12 136/76 97 04/16/17 12:36 97.3 F 73 124/70 93 - VS Reviewed Vital Signs Reviewed: Yes Discharge Clinical Impression: Falls frequently Discharge Disposition: Admit to Inpatient Condition: Fair Date Decision to Admit to Inpatient: 04/16/17 Time Decision to Admit to Inpatient: 11:55
[2017-04-17] MEDS ORDERED: ENOXAPARIN SODIUM 60 MG/0.6 ML SYRINGE SUBCUT SCH (01:00)
[2017-04-17 04:21] LABS: BASOPHILS # (AUTO) 0.07 10*3/UL; BASOPHILS % (AUTO) 0.9 % (0-1); EOSINOPHILS # (AUTO) 0.09 10*3/UL; EOSINOPHILS % (AUTO) 1.1 % (0-8); HEMATOCRIT 38.7 % (37.0-47.0); LYMPHOCYTES # (AUTO) 0.86 10*3/uL; MEAN CORPUSCULAR HEMOGLOBIN 29.5 PG (27-31); MEAN CORPUSCULAR HGB CONC 33.6 g/dL (33-37); MEAN CORPUSCULAR VOLUME 87.8 FL (81-99); MEAN PLATELET VOLUME 9.9 FL (7.4-12.2); MONOCYTES # (AUTO) 1.12 10*3/UL (0.3-0.8); MONOCYTES % (AUTO) 13.6 % (5-15); NEUTROPHILS # (AUTO) 6.04 10*3/UL; NEUTROPHILS % (AUTO) 73.5 % (50-80); RED BLOOD COUNT 4.41 10^6/uL (4.20-5.40)
[2017-04-17 04:26] LABS: BUN/CREATININE RATIO 26.25 (6-20); CALCIUM 8.6 mg/dL (8.7-10.7); MAGNESIUM 1.6 mg/dL (1.6-2.4); PLATELET MORPHOLOGY COMMENT NORMAL MORPHOLOGY (NORM); RBC MORPHOLOGY COMMENT NORMAL MORPHOLOGY (NORM); SERUM ALBUMIN 3.5 g/dL (3.5-4.8); WBC MORPHOLOGY COMMENT NORMAL MORPHOLOGY (NORM)
[2017-04-17] MEDS ORDERED: LEVOTHYROXINE 50 MCG TABLET PO SCH ×2 (05:30→09:00)
[2017-04-17] MEDS ORDERED: METOPROLOL SUCCINATE 25 MG SR 24H TABLET PO SCH (09:00)
[2017-04-17] MEDS ORDERED: CHOLECALCIFEROL 1000 IU TABLET PO SCH (09:00)
[2017-04-17] MEDS ORDERED: ASPIRIN EC 81 MG TABLET PO SCH (09:00)
[2017-04-17] MEDS ORDERED: LISINOPRIL 5 MG TABLET PO SCH (09:00)
--- NOTE | 2017-04-17 10:00 | PT.PROG ---
Progress Note Progress Note: S. Patient stated that she is not feeling well today and she is in a lot of pain. O. OT wheeled patient to the therapy gym where she transferred to the table for heat and requested to use the restroom Patient transferred back to the wheelchair and was wheeled to the bathroom where she transferred to the commode and back to the chair. Nursing requested her to be returned to her room and she was wheeled back to her room where she was left with Nursing. A. Patient is very unsafe with transfers and reaches for objects outside of her walker to assist with transfers, she requires mod to max assist x2 for transfers and mobility. She became very fatigued when attempting to get off the commode and required a dependent transfer back to the chair, and became unconscious for approximately 30 seconds. Patient is very weak and would continue to benefit from strengthening and mobility training. P. continue POC.
--- NOTE | 2017-04-17 10:00 | OT.PROG ---
Progress Note Progress Note: S: Pt reports that her back and right knee were sore today. Pt reports pain with movement and feels better in supine position. Pt was offered heat and pt agreed that might help with pain. O: Pt was in bed upon arrival. Initially pt did not want to participate in therapy, however later agreed to participate. Pt performed bed mobility and moved from supine to sit at EOB with max assist. Pt dressed UE with set-up and min. assist to pull down shirt in back while sitting unsupported on EOB. Pt required max assist to dress LE including threading pants and mod assist X 2 for sit to stand from EOB with FWW. Pt is able to follow 1 step verbal cues 50% of the time. Pt was oriented to person and reason for hospitalization however was not oriented to place. Nursing reported pt could go to therapy for moist heat to help with pain. Pt was transported to therapy, however nursing reported pt needed to be returned to room. Pt was returned. Pt was fatigued following therapy session, and was unresponsive to verbal cues and questions. Nursing notified. A: Pt requires assist for functional mobility and ADL tasks for safety and performance. Pt continues to require skilled therapy to improve ADL performance , decrease pain, improve functional mobility and safety. P: Continue POC. NANCY Hobbs
[2017-04-17] MEDS ORDERED: Sodium Chloride 0.9% 500 ML ONE (10:23)
[2017-04-17] MEDS ORDERED: Sodium Chloride 0.9% 500 ML PRIMARY IV ONE (10:28)
--- NOTE | 2017-04-17 10:58 | OTI REPORT ---
Thank you for the referral of Kayleigh Bird. She was seen on 04/16/17 for an occupational therapy inpatient evaluation secondary to increased falls and a T8 compression fracture. SUBJECTIVE: The patient is an 87-year-old female who is being seen for an occupational therapy evaluation secondary to falling in her home. She fell yesterday evening and ended up with a T8 compression fracture. The patient's daughter reports that the patient is having increased difficulty at home and increased falls. She states when she came to see her mom she had difficulty getting her to stand up. Typically she uses a four wheeled walker with a seat at home. The patient and her daughter report that the patient is falling more frequently with the use of this. The patient lives in a one level home with her significant other. The patient reports that her significant other helps her quite a bit; his name is Virgilio. Prior to admission the patient reports that she was getting assistance with bathing two times a week. She reports that she has one grab bar in the tub. She is using a towel rack to get on and off the standard toilet. Kayleigh reports that she does some of the laundry including folding it and Virgilio does all of the washing and drying of the clothes, cooking , cleaning, grocery shopping, and driving. Kayleigh would like to stay in her home but she knows that she is having increased difficulty trying to stay safe and she is falling more frequently. PAST MEDICAL HISTORY: Past medical history can be found in the patient's medical record. OBJECTIVE FINDINGS: Objective findings: The patient was sitting in bed upon the therapist's arrival. The patient has poor vision. The patient is not alert and oriented. She thought the month was November and the year was 1979. Bed mobility: The patient was able to come from supine to sit with mod assist. The patient was able to sit edge of bed. Activities of daily living: The patient attempted dressing tasks. She needed max assist to doff and don her socks and mod assist in order to put on pants. She requires max assist to pull pants from thigh to waist level. The patient requires max assist for toilet hygiene, especially with her balance. Ambulation: The patient requires min to mod assist x2 in order to ambulate. Transfers: The patient required max assist and verbal cues to transfer to the toilet as well as max assist for turning. The patient was able to transfer from sit to stand with max assist. Range of motion: Upper extremity range of motion is within normal limits. Strength: Upper extremity strength for shoulder flexion was 3+/5, shoulder extension is 4/5, elbow flexion/extension is 4+/5, wrist flexion/extension is 4/ 5. Pain: The patient rates her pain in her back as a 6/10 on the verbal analog scale (0=no pain, 10=worst pain) ASSESSMENT: At this time the patient is having visual, cognitive, and physical difficulties. Her daughter is reporting that she is going to look into the [facility] for possible discharge. At this point in time this would be the best recommendation for safety. Problem List: Decreased balance Decreased vision Decreased cognition Decreased functional mobility Decreased upper extremity strength Short-Term Goals: To be met by discharge from inpatient: Patient will be able to dress self with min assist after set up. Patient will improve upper extremity strength to 4+/5 throughout bilateral upper extremities for strength with functional transfers. Patient will be able to complete a toilet transfer along with toilet hygiene with stand by assist. Patient will be able to complete a shower task with min assist. Patient will be able to stand x5 minutes to complete simple hygiene activities. Long-Term Goals: To be met following discharge from inpatient: Patient will be able to complete a toilet transfer and dress self independently. TREATMENT PLAN: Patient will be seen B.I.D during the week and one time per day over the weekend as an inpatient to address the above goals and objectives. INITIAL TREATMENT: Treatment today consisted of the initial evaluation followed by bed mobility, toilet transfer, and dressing tasks. YI
[2017-04-17] MEDS ORDERED: diphenhydrAMINE 25 MG CAPSULE PO PRN (11:33)
[2017-04-17] MEDS ORDERED: ACETAMINOPHEN 500 MG TABLET PO PRN (11:33)
--- NOTE | 2017-04-17 12:05 | PTI REPORT ---
Thank you for the referral of Kayleigh Bird. She was seen on 04/16/17 for an inpatient evaluation secondary to weakness. SUBJECTIVE: The patient is an 87-year-old female who has a history of frequent falls. The patient was admitted to the hospital this morning after she fell out of bed last night. She states that she was reaching for a bottle that was on her floor and she fell out of bed and was unable to get herself back into bed. The patient states that she spent most of the night on the floor but was able to scoot herself over to the phone. The patient's daughter stated that she did find the patient on the floor in the morning and it took her and her niece to get the patient back into her bed. From there they did call 911 and the ambulance came and brought her to the hospital. The patient's daughter states that the patient's cognitive awareness has been decreasing and she has also been having more difficulty with any type of walking activity and requires at least assist of two. She also reports difficulty with getting up and getting in and out of bed. The patient's family is concerned with her decline of function and her cognitive decline as they don't feel like she is safe to be home anymore. [facility]. The patient lives at home. 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 On the night of her fall she was out of town, but usually he spends the night. The patient's daughter also comes and checks on her daily and her niece does help with activities as needed. The patient requires assistance with bathing, cooking, cleaning, groceries, and laundry. The patient states she has not driving in quite some time. Prior to the patient 's recent fall, she has been using a front wheeled walker to get around but requires assistance and has multiple falls both with and without the walker. The patient gave her history, which was collaborated by her daughter, who showed up after the evaluation was complete. PAST MEDICAL HISTORY: Past medical history can be found in the patient's medical record. OBJECTIVE FINDINGS: Objective findings: The patient is alert and oriented to setting upon PT arrival. The patient was in bed and she did have a heart monitor in place as well as a blood pressure cuff and a pulse oximeter. Bed mobility: The patient was able to move from a supine to seated position with min assist x1. The patient required hand hold assist x2 on edge of bed to maintain seated balance and demonstrated a kyphotic posture. After ambulation, the patient had difficulty getting back onto the bed as it is a higher bed and the patient is shorter and she kept feeling like she was going to fall. The patient did panic as she could not get herself up onto the bed. She did require max assist x2 to transfer from sit to supine. With max verbal cueing, the patient was able to perform bridges to scoot herself back up into bed. Activities of daily living: The patient was unable to put her own socks on and has a hard time allowing her hand to leave the bed due to her poor balance. The patient requires assistance with toileting activities. Transfers: A gait belt was placed around the patient and the patient moved from a seated to standing position with mod assist x2. The patient required mod assist to transfer from a standing to seated position. Balance: The patient demonstrated poor initial standing balance. The patient continually reports that she is afraid to fall. Ambulation: We did attempt walking from the patient's bed to the bathroom, approximately 15 feet with front wheeled walker. The patient required assist of two and max verbal tactile cueing to help maneuver the walker and to remind the patient to stay within the base of the walker as she has a tendency to let the walker go out in front of her. The patient also had a tendency to reach out and grab onto objects instead of just holding onto the walker as she was so afraid that she was going to fall, she was just grabbing for anything that she could to help maintain her balance. The patient required max verbal cueing to make a turn within the bathroom in order to back up to the toilet seat. ASSESSMENT: The patient has fair rehab potential due to her past medical history and frequent falling along with her cognition. Problem List: Decreased endurance/activity tolerance Patient is a very high fall risk Generalized weakness Cognitive issues Short-Term Goals: To be met by discharge from inpatient: Patient will be able to transfer from bed to stand with no more than min assist x1. Patient will be able to ambulate safely with assist of one to and from the bathroom within her room or approximately 25 feet. Patient will not have any problems while she is at the hospital. Long-Term Goals: To be met following discharge from inpatient: Patient most likely will be discharged to the [facility] where it will be a more appropriate place for her to reside due to her current cognition and history of multiple falls. Once she is discharged, we will hopefully get therapy orders to continue to work on general strengthening and having the patient feel more safe ambulating with one person to and from the bathroom and with her transfers. TREATMENT PLAN: Patient will be seen B.I.D during the week and one time per day over the weekend as an inpatient for general strengthening, working on safety, improving her independence with transfers, and ambulation with front wheeled walker, hopefully requiring fewer verbal cues and decreased fall risk behavior such as reaching out for items and letting her walker get too far in front of her. INITIAL TREATMENT: Treatment today consisted of the initial evaluation followed by one unit of functional activity. Please see objective findings for information. YI
--- NOTE | 2017-04-17 13:38 | PT.PROG ---
Progress Note Progress Note: Nursing suggests no therapy this afternoon due to medications.
--- NOTE | 2017-04-17 14:54 | PDOC(PROG) ---
Date and Time of Service: 04/17/2017, 1449 Interval History: patient seen and evaluated earlier today. no chest pain, more tired today post benadryl. blood pressures lower. no shortness of breath. big complaint is bilateral knee pain. Objective : Data - Labs CBC and BMP: 04/17/17 04:07 04/17/17 04:07 Labs - Last 24 Hours: Laboratory Results 04/16/17 04/16/17 04/17/17 Range/Units 16:13 21:54 04:07 WBC 8.21 (4.8-10.8) 10^3/uL RBC 4.41 (4.20-5.40) 10^6/uL Hgb 13.0 (12.0-16.0) g/dL Hct 38.7 (37.0-47.0) % MCV 87.8 (81-99) FL MCH 29.5 (27-31) PG MCHC 33.6 (33-37) g/dL RDW Std Deviation 41.9 (39-50) fL RDW Coeff of [place] 13.3 (11.5-14.5) % Plt Count 240 (140-350) 10*3/uL MPV 9.9 (7.4-12.2) FL Immature Gran % (Auto) 0.4 (0-5) % Neut % (Auto) 73.5 (50-80) % Lymph % (Auto) 10.5 (10-50) % Grand % (Auto) 13.6 (5-15) % Eos % (Auto) 1.1 (0-8) % Baso % (Auto) 0.9 (0-1) % Immature Gran # (Auto) 0.03 10*3/UL Neut # (Auto) 6.04 10*3/UL Lymph # (Auto) 0.86 10*3/uL Grand # (Auto) 1.12 H (0.3-0.8) 10*3/UL Eos # (Auto) 0.09 10*3/UL Baso # (Auto) 0.07 10*3/UL WBC Morphology Comment Normal morphology (NORM) Plt Morphology Comment Normal morphology (NORM) RBC Morph Comment Normal morphology (NORM) Sodium 139 (135-145) meq/L Potassium 3.9 (3.8-5.2) meq/L Chloride 106 (98-112) meq/L Carbon Dioxide 24 (23-33) meq/L Anion Gap 9 (5-20) BUN 21 (7-22) mg/dL Creatinine 0.8 (0.50-1.20) mg/dL Estimated GFR (>60 ml/min/1.73m(2)) BUN/Creatinine Ratio 26.25 H (6-20) Glucose 102 (78-110) mg/dL Calculated Osmolality 290.0 (267-292) mOsm/kg Calcium 8.6 L (8.7-10.7) mg/dL Magnesium 1.6 (1.6-2.4) mg/dL Total Bilirubin 1.2 (0.3-1.2) mg/dL AST 23 (8-39) IU/L ALT 27 (9-52) IU/L Alkaline Phosphatase 55 (38-126) IU/L Total Creatine Kinase 117 (30-136) IU/L Troponin I 0.038 0.021 0.016 (< 0.040) ng/mL Total Protein 6.3 (6.1-8.0) g/dL Albumin 3.5 (3.5-4.8) g/dL Globulin 2.7 (2.50-4.10) g/dL Albumin/Globulin Ratio 1.20 L (1.3-2.0) mg/g Vitamin B12 258 (239-931) pg/mL Serum Folate 5.51 (2.76-20.0) NG/ML 04/17/17 Range/Units 10:00 WBC (4.8-10.8) 10^3/uL RBC (4.20-5.40) 10^6/uL Hgb (12.0-16.0) g/dL Hct (37.0-47.0) % MCV (81-99) FL MCH (27-31) PG MCHC (33-37) g/dL RDW Std Deviation (39-50) fL RDW Coeff of [place] (11.5-14.5) % Plt Count (140-350) 10*3/uL MPV (7.4-12.2) FL Immature Gran % (Auto) (0-5) % Neut % (Auto) (50-80) % Lymph % (Auto) (10-50) % Grand % (Auto) (5-15) % Eos % (Auto) (0-8) % Baso % (Auto) (0-1) % Immature Gran # (Auto) 10*3/UL Neut # (Auto) 10*3/UL Lymph # (Auto) 10*3/uL Grand # (Auto) (0.3-0.8) 10*3/UL Eos # (Auto) 10*3/UL Baso # (Auto) 10*3/UL WBC Morphology Comment (NORM) Plt Morphology Comment (NORM) RBC Morph Comment (NORM) Sodium (135-145) meq/L Potassium (3.8-5.2) meq/L Chloride (98-112) meq/L Carbon Dioxide (23-33) meq/L Anion Gap (5-20) BUN (7-22) mg/dL Creatinine (0.50-1.20) mg/dL Estimated GFR (>60 ml/min/1.73m(2)) BUN/Creatinine Ratio (6-20) Glucose (78-110) mg/dL Calculated Osmolality (267-292) mOsm/kg Calcium (8.7-10.7) mg/dL Magnesium (1.6-2.4) mg/dL Total Bilirubin (0.3-1.2) mg/dL AST (8-39) IU/L ALT (9-52) IU/L Alkaline Phosphatase (38-126) IU/L Total Creatine Kinase (30-136) IU/L Troponin I < 0.012 (< 0.040) ng/mL Total Protein (6.1-8.0) g/dL Albumin (3.5-4.8) g/dL Globulin (2.50-4.10) g/dL Albumin/Globulin Ratio (1.3-2.0) mg/g Vitamin B12 (239-931) pg/mL Serum Folate (2.76-20.0) NG/ML Objective : Exam - General General Appearance: No Acute Distress, Cooperative Additional General Exam Details: Vital Signs - Last Taken Temperature 98.1 F 04/17/17 14:00 Pulse Rate 66 04/17/17 14:00 Respiratory Rate 18 04/17/17 14:00 Blood Pressure 97/49 04/17/17 14:00 Pulse Ox 94 04/17/17 14:00 - ENT ENT Exam: Mucous Membranes Moist - Respiratory Respiratory Exam: Clear to Auscultation - Bilaterally, Breathing Non Labored - Cardiovascular Cardiovascular Exam: RRR, No Murmur, No Clicks, No Gallops, No Rubs, No JVD - GI/Abdominal GI/Abdominal Exam: Normal Bowel Sounds, Non Tender, Non Distended, Soft - Extremities Extremities Exam: No Clubbing Present, No Edema Present, No Cyanosis Present - Neurological Neurological Exam: Alert, No Facial Droop, Speech Intact / Clear, Moves All Extremities Equally Assessment and Plan - Patient Problems (1) Hypotension Current Visit: Yes Status: Acute Qualifiers: Hypotension type: hypotension due to drug Qualified Description: Hypotension due to drugs Qualifier Code(s): (I95.2) Hypotension due to drugs (2) Hypothyroidism Current Visit: Yes Status: Acute Qualifiers: Hypothyroidism type: acquired Qualified Description: Acquired hypothyroidism Qualifier Code(s): (E03.9) Hypothyroidism, unspecified (3) Compression fracture Current Visit: Yes Status: Acute (4) Cervical stenosis of spinal canal Current Visit: Yes Status: Acute (5) Falls frequently Current Visit: Yes Status: Acute (6) Elevated troponin Current Visit: Yes Status: Resolved - Assessment / Plan Additional Assessment/Plan Details: troponin trending does not reveal [place] hypotension is likely from benadryl, ACEI and beta pepe. STop these get X-rays of knees fluids for hypotension transfer from ICU PT and OT probably needs SNF daughter not available today at bedside.
--- NOTE | 2017-04-17 14:55 | OT.PROG ---
Progress Note Progress Note: Nursing staff reported that pt. was on hold secondary to low blood pressure. She is having difficulty staying alert. Will attempt again tomorrow.
--- NOTE | 2017-04-17 16:48 | DI ---
RIGHT KNEE, 04/17/2017 2:48 PM: Clinical History: Injury. The patient fell. Previous Exam: None at this facility. AP and a crosstable lateral view are submitted. There is no fracture or dislocation. A moderate joint effusion is present. There are bony densities in the region of the popliteal fossa, consistent with synovial osteochondromata. There is calcification of the medial and lateral menisci indicating chondr ocalcinosis. Readin. There is no acute fracture or dislocation. 2. Chondrocalcinosis.
--- NOTE | 2017-04-17 16:50 | DI ---
LEFT KNEE, 04/17/2017 2:47 PM: Clinical History: Injury. The patient fell. Previous Exam: None at this facility. An AP and a crosstable lateral view are submitted. There is a small joint effusion. There is no fract ure or dislocation. There are calcifications of the medial and lateral menisci consistent with chondr ocalcinosis. Readin. There is no fracture or dislocation. A small joint effusion is present. 2. Chondrocalcinosis.
[2017-04-17] MEDS ORDERED: diphenhydrAMINE HCL 12.5 MG/5 ML UD CUP PO ONE (23:48)
[2017-04-17] MEDS: diphenhydrAMINE HCL 12.5 MG/5 ML UD CUP PO PRN (23:55)
[2017-04-18] MEDS: LEVOTHYROXINE 50 MCG TABLET PO SCH (05:12)
[2017-04-18] MEDS ORDERED: CYANOCOBALAMIN 1000 MCG/1 ML VIAL IM ONE (07:57)
[2017-04-18] MEDS: ACETAMINOPHEN 325 MG TABLET PO PRN ×3 (10:01→23:02)
[2017-04-18] MEDS: CHOLECALCIFEROL 1000 IU TABLET PO SCH (10:01)
[2017-04-18] MEDS: ASPIRIN EC 81 MG TABLET PO SCH (10:02)
--- NOTE | 2017-04-18 10:23 | OT.PROG ---
Progress Note Progress Note: Pt. seen from 9-10 a.m. Subjective: Pt. reports that she is feeling a little better. She just finished breakfast. During the session she did have c/o of leg pain. Objective: Pt. came from supine to sit with mod. A. In bed worked on dressing skills and hygiene. Pt. sat in bed and needed mod. A for donning shirt, mod. A for short and dependent with socks. She Was able to complete simple hygiene after set-up independently which included hair, face and teeth. Pt. then stood and c/o of leg pain, ambulated to the toilet and needed several attempts to sit on toilet secondary to height. Pt. then attempted toilet hygiene, was confused about pulling pants up before she was totally clean. Needed max. A for further cleaning. Then walked 5 feet before she stated that she needed to sit. Pt. was wheeled to therapy and participated in [employer] ex. which included: triceps, biceps. H abd, IROT/EROT, and extension X 15 reps apiece. [place] web 1 min. B hands. 2# weight for pro/sup and biceps X 15 reps. Pt the completed 10 sit to stands with a 2 min. break between 5 reps. secondary to leg pain. 2# leg weight for marching X 2 reps of 30 sec. SAQ X 10 reps and hip ab/adduction. X 15 reps. Ankle pumps. Pt. then was wheeled upstairs and ambulated 20 feet with max. verbal cues and mod. A for safety for use of walker. Was put in chair. She had c /o of hamstring pain after therapy. Nursing notified. Assessment: Pt. more than likely has shortened hamstrings from decreased mobility and is having leg pain from that. She does have decreased balance, cognition, strength and safety awareness to be at home by herself at this time as demonstrated in therapy today. Plan: Continue with skilled therapy services to address goals and objectives.
--- NOTE | 2017-04-18 11:38 | PDOC(PROG) ---
Interval History: Doing well has no complaints some joint stiffness but this is pretty much normal for her she says. Denies chest pain nausea or vomiting and waiting for lunch Objective : Data - Labs CBC and BMP: 04/17/17 04:07 04/17/17 04:07 Objective : Exam - General General Appearance: Cooperative - Respiratory Respiratory Exam: Clear to Auscultation - Bilaterally, Breathing Non Labored, Normal To Percussion - Cardiovascular Cardiovascular Exam: RRR, No Murmur, No Clicks, No Gallops - GI/Abdominal GI/Abdominal Exam: Normal Bowel Sounds, Non Distended, Soft - Extremities Extremities Exam: Normal Inspection, No Clubbing Present, No Edema Present - Neurological Neurological Exam: Alert, Oriented x 3, CN II-XII Intact, No Facial Droop - Psychiatric Psychiatric Exam: Normal Affect, Normal Mood Assessment and Plan - Patient Problems (1) Cervical stenosis of spinal canal Current Visit: Yes Status: Acute (2) Compression fracture Current Visit: Yes Status: Acute (3) Falls frequently Current Visit: Yes Status: Acute (4) Hypotension Current Visit: Yes Status: Acute Qualifiers: Hypotension type: hypotension due to drug Qualified Description: Hypotension due to drugs Qualifier Code(s): (I95.2) Hypotension due to drugs (5) Hypothyroidism Current Visit: Yes Status: Acute Qualifiers: Hypothyroidism type: acquired Qualified Description: Acquired hypothyroidism Qualifier Code(s): (E03.9) Hypothyroidism, unspecified (6) Arthritis Current Visit: Yes Status: Acute - Assessment / Plan Additional Assessment/Plan Details: Overall patient is doing great waiting for fdc placement secondary to her multiple falls and unable to take care of herself. She does have arthritis I will add some Celebrex to help her
[2017-04-18] MEDS ORDERED: diphenhydrAMINE HCL 12.5 MG/5 ML UD CUP PO ONE (20:55)
[2017-04-18] MEDS: diphenhydrAMINE HCL 12.5 MG/5 ML UD CUP PO PRN (21:00)
[2017-04-18] MEDS: CELECOXIB 200 MG CAPSULE PO SCH (21:02)
[2017-04-19] MEDS: LEVOTHYROXINE 50 MCG TABLET PO SCH (06:39)
[2017-04-19] MEDS: CHOLECALCIFEROL 1000 IU TABLET PO SCH (08:40)
[2017-04-19] MEDS: ASPIRIN EC 81 MG TABLET PO SCH (08:40)
[2017-04-19] MEDS: CELECOXIB 200 MG CAPSULE PO SCH ×2 (08:40→20:44)
--- NOTE | 2017-04-19 09:48 | PDOC(PROG) ---
Interval History: Patient is doing great had physical therapy today was able to walk some patient was started on Celebrex yesterday no other complaints Objective : Data - Labs CBC and BMP: 04/17/17 04:07 04/17/17 04:07 Objective : Exam - General General Appearance: Cooperative - Eye Eye Exam: Normal Appearance - Respiratory Respiratory Exam: Clear to Auscultation - Bilaterally, Breathing Non Labored - Cardiovascular Cardiovascular Exam: RRR, No Murmur - Extremities Extremities Exam: No Clubbing Present, No Edema Present, No Cyanosis Present Assessment and Plan - Patient Problems (1) Cervical stenosis of spinal canal Current Visit: Yes Status: Acute Comment: Continue PTOT (2) Compression fracture Current Visit: Yes Status: Acute Comment: Celebrex (3) Falls frequently Current Visit: Yes Status: Acute (4) Hypotension Current Visit: Yes Status: Acute Comment: Resolved off meds now Qualifiers: Hypotension type: hypotension due to drug Qualified Description: Hypotension due to drugs Qualifier Code(s): (I95.2) Hypotension due to drugs (5) Hypothyroidism Current Visit: Yes Status: Acute Qualifiers: Hypothyroidism type: acquired Qualified Description: Acquired hypothyroidism Qualifier Code(s): (E03.9) Hypothyroidism, unspecified (6) Arthritis Current Visit: Yes Status: Acute - Assessment / Plan Additional Assessment/Plan Details: Overall patient is unable to live for care for self she is continuing with physical therapy and making very little progress overall arthritis is improved with Celebrex twice a day and her blood pressure is much better patient feels much better with this blood pressure after she was taken off [address] Watson
[2017-04-19] MEDS: ACETAMINOPHEN 325 MG TABLET PO PRN ×2 (12:29→20:43)
--- NOTE | 2017-04-19 12:53 | OT.PROG ---
Progress Note Progress Note: Subjective: Pt. reports that her knees are hurting her quite a bit today. The right one, she reports "feels hot inside" Objective: Pt. was able to come from supine to sit today with moderate assistance. She sat EOB and worked on dressing skills which included shirt with Mod A, shorts with mod. A from feet to knees, was max. A when standing from knees to waist. Pt. ambulated 15 feet with mod. A and cues to use walker correctly. Downstairs in therapy she needed min. A to continue with arm bike X 5 min. She then was wheeled to [facility], during this time she had c/o of right shoulder and right knee pain and was only able to tolerate 5 of the 10 min. of the goal today. Pt. then ambulated 10 feet to the mat with mod. A. At mat worked on sit to stands X 8, with 1# on each leg worked on marching and SAQ's. While in supine position with heat on legs, pt. was able to work on UE strengthening with 2# for biceps, punch outs, pro/sup., powerweb, cane ex. with 2# for bench and side to side movements. She then ambulated another 10 feet to w /c with mod. A and wheeled to her room to the chair. Completed transfer with mod. A and cues for correct turning. Assessment: Pt. was able to ambulate short periods at a time with mod. A today. She still has weakness, balance and cognitive difficulties for safety on her own. Plan: Continue with skilled therapy to address goal and objectives.
[2017-04-19] MEDS ORDERED: diphenhydrAMINE HCL 12.5 MG/5 ML UD CUP PO ONE (20:12)
[2017-04-19] MEDS: diphenhydrAMINE HCL 12.5 MG/5 ML UD CUP PO PRN (20:44)
[2017-04-20] MEDS: LEVOTHYROXINE 50 MCG TABLET PO SCH (04:53)
[2017-04-20] MEDS: CELECOXIB 200 MG CAPSULE PO SCH ×2 (09:17→20:43)
[2017-04-20] MEDS: ASPIRIN EC 81 MG TABLET PO SCH (09:17)
[2017-04-20] MEDS: CHOLECALCIFEROL 1000 IU TABLET PO SCH (09:18)
[2017-04-20] MEDS: ACETAMINOPHEN 325 MG TABLET PO PRN ×2 (10:26→20:43)
--- NOTE | 2017-04-20 11:37 | PDOC(PROG) ---
Interval History: Patient has no complaints doing well Objective : Data - Labs CBC and BMP: 04/17/17 04:07 04/17/17 04:07 Objective : Exam - Respiratory Respiratory Exam: Clear to Auscultation - Bilaterally, Breathing Non Labored, Normal To Percussion - Cardiovascular Cardiovascular Exam: RRR, No Murmur, No Clicks, No Gallops - Extremities Extremities Exam: No Clubbing Present, No Edema Present, No Cyanosis Present Assessment and Plan - Patient Problems (1) Cervical stenosis of spinal canal Current Visit: Yes Status: Acute (2) Compression fracture Current Visit: Yes Status: Acute (3) Falls frequently Current Visit: Yes Status: Acute (4) Hypotension Current Visit: Yes Status: Acute Qualifiers: Hypotension type: hypotension due to drug Qualified Description: Hypotension due to drugs Qualifier Code(s): (I95.2) Hypotension due to drugs (5) Hypothyroidism Current Visit: Yes Status: Acute Qualifiers: Hypothyroidism type: acquired Qualified Description: Acquired hypothyroidism Qualifier Code(s): (E03.9) Hypothyroidism, unspecified (6) Arthritis Current Visit: Yes Status: Acute - Assessment / Plan Additional Assessment/Plan Details: Patient has no complaints pain is controlled Celebrex is working awaiting fpc placement
--- NOTE | 2017-04-20 12:20 | PT.PROG ---
Progress Note Progress Note: AM PT: 10:50- 11:20 S: Pt doing fair this morning. Pt had requested a rest break between OT and PT today and after rest break was willing to participate in therapy and come down to the therapy room. O: Treatment consisted of: supine to seated transfer for min A x 1, seated EOB x 2 minutes with min A x 1, ambulation x 15 feet with FWW and Assist x 2, instruction in ther ex 10 x each of the following - 2# alt LAQ's, 2# alt marching, hs curls with red tband, seated clams with red tband, ankle pumps, ball squeezes, red tband u/e, ambulation x 50 feet with assist x 2 and FWW. Pt was left in bed in room with alarm set and call light. A: Pt tolerated exercises well with max vc required when ambulating to stay within base of walker and to help direct due to vision difficulties. P: Continue per POC.
--- NOTE | 2017-04-20 13:59 | OT.PROG ---
Progress Note Progress Note: S: Pt reports feeling better today, however reports pain in her knees when ambulating. O: Pt seen from 9:00 to 9:30 for skilled occupational therapy. Pt supine in bed upon arrival. Pt agrees to participate in ADL activities. Pt moved from supine to sit at EOB with min assist. Pt completed UE dressing with set-up assist and assembler for puller over hand shirt and LE dressing with min assist to thread shorts over feet while sitting EOB. Pt completed functional mobility to include sit to stands from EOB and ambulating to and from bathroom with max verbal cueing and use of FWW. Pt performed toileting task to include transfers and toilet hygiene with min assist. Pt performing hand hygiene task while standing at sink X 1 min, leaning on sink for support. Pt returned to bed and required mod verbal cues and mod assist for bed mobility tasks. Pt demonstrated ability to bridge while in bed with verbal cueing. A: Pt requires verbal cues during functional mobility and bed mobility tasks for safety with use of FWW. Pt continues to benefit from skilled occupational therapy to address safety with ADL tasks, safety with use of adaptive equipment to prevent falls, for generalized strengthening and to increase activity tolerance. P: Continue POC. NANCY Hobbs
--- NOTE | 2017-04-20 14:22 | PT.PROG ---
Progress Note Progress Note: Patient refused therapy this afternoon. Reporting that she already did therapy and does not want to do more this afternoon.
--- NOTE | 2017-04-20 17:04 | OT.PROG ---
Progress Note Progress Note: Pt refused therapy this afternoon. Pt reported participating in therapy this morning and did not want to participate this afternoon. JHON Hobbs/Osvaldo
[2017-04-20] MEDS ORDERED: diphenhydrAMINE HCL 12.5 MG/5 ML UD CUP PO ONE (20:02)
[2017-04-20] MEDS: diphenhydrAMINE HCL 12.5 MG/5 ML UD CUP PO PRN (20:42)
[2017-04-21] MEDS: LEVOTHYROXINE 50 MCG TABLET PO SCH (05:04)
[2017-04-21 06:49] VITALS: RESP 20
[2017-04-21] MEDS: CELECOXIB 200 MG CAPSULE PO SCH (09:16)
[2017-04-21] MEDS: CHOLECALCIFEROL 1000 IU TABLET PO SCH (09:16)
[2017-04-21] MEDS: ASPIRIN EC 81 MG TABLET PO SCH (09:16)
--- NOTE | 2017-04-21 10:56 | DCSUMMARY ---
Hospitalization Summary Hospital Course: Final Discharge Diagnosis: Current Visit Problems Problem Status Priority Diagnosed Code Arthritis Acute M19.90 Cervical stenosis of spinal canal Acute M48.02 Compression fracture Acute [id number] Falls frequently Acute R29.6 Hypotension Acute I95.9 Hypothyroidism Acute E03.9 Elevated troponin Resolved R74.8 Diagnostic Data, Laboratory Data, and Procedures of Signifigance: History and Physical pertinent to Admission: Course of Hospitalization: This very nice 87-year-old female who was admitted after sustaining a fall at home this is not the first time and she's been having multiple falls at home according to the daughter she was found on the floor and was laying there for a while before she got help and apparently the day before she had another fall initially troponin and CK-MB were mildly elevated. Patient denied chest pain throughout her hospital stay another troponins were negative I believe this did not represent any cardiac event and most likely was from her laying down on the floor after the fall patient did not have any any presyncopal episodes or lightheadedness. She had the multiple imaging studies also she appears to have some dementia she did quite well throughout her hospital stay and is awaiting fpc placement she was evaluated today and most likely accepted this afternoon. Most likely her falls are secondary to her osteoporosis compression fractures cervical lungs stenosis and degenerative joint disease. I did start her on Celebrex and this seems to control her arthritis pain very well she has no complaints no chest pain nausea vomiting and all other review of systems are negative she is eating and with good urine output. Also had some hypotension and Dr. Watson stopped her [place] and this is resolved with better blood pressure and patient feeling much better this could've also been a cause for her falls as well. She has low B12 will give her one IM injection of B12 before she goes and I'll also check a TSH On the date of discharge, the patient was examined: Gen.: No acute distress, alert, nontoxic Heart: Regular rate and rhythm, no murmurs, clicks, gallops, or rubs Lungs: Clear to auscultation bilaterally, breathing is nonlabored Abdomen/GI: Normal tones on auscultation, soft, nontender, nondistended Musculoskeletal/extremities: No clubbing, cyanosis, or edema Vitals reviewed and are listed below Vital Signs (24 hrs) Temp Pulse Resp BP BP Pulse Ox 07/18/17 06:49 97.8 F 69 20 138/74 94 04/21/17 03:55 96.8 F 57 L 16 131/60 93 04/20/17 19:32 97.9 F 67 20 106/50 93 04/20/17 16:47 97.5 F 75 17 135/65 95 04/20/17 11:33 97.5 F 72 17 130/54 98 Assessment and Plan: 1. As per discharge assessments above 2. Disposition: [facility] sent by Dr. Anderson 3. Condition on discharge, stable and improved. 4. Diet: regular diet 5. Activities: resume normal activities 6. Follow-Up: 1. PCP Dr. Woods 2. 7. Medications at the Time of Discharge: Home Medications Medication Instructions Recorded Confirmed Type Levothyroxine Sodium [Synthroid] 50 mcg PO DAILY 04/16/17 04/16/17 History Aspirin EC 81 mg PO DAILY tab 04/21/17 Rx Celecoxib [Celebrex] 200 mg PO BID cap 04/21/17 Rx Cholecalciferol [Vitamin D3] 1,000 iu PO DAILY tab 04/21/17 Rx 8. Time, care, counseling and coordination of care for this discharge is greater than 30 minutes. Exam - Vitals Vital Signs: Vital Signs Temperature 97.8 F Temperature Source Temporal Artery Scan Pulse Rate [Pulse Oximeter] 69 Pulse Rate 72 Respiratory Rate 20 Blood Pressure [Left Arm] 138/74 Blood Pressure [Right Arm] 130/54 Blood Pressure 124/70 Pulse Ox 94 Oxygen Delivery Method Room Air Height 4 ft 11 in Weight 53.07 kg Patient Problems - Patient Problem List (1) Cervical stenosis of spinal canal Current Visit: Yes Status: Acute (2) Compression fracture Current Visit: Yes Status: Acute (3) Falls frequently Current Visit: Yes Status: Acute (4) Hypotension Current Visit: Yes Status: Acute Qualifiers: Hypotension type: hypotension due to drug Qualified Description: Hypotension due to drugs Qualifier Code(s): (I95.2) Hypotension due to drugs (5) Hypothyroidism Current Visit: Yes Status: Acute Qualifiers: Hypothyroidism type: acquired Qualified Description: Acquired hypothyroidism Qualifier Code(s): (E03.9) Hypothyroidism, unspecified (6) Arthritis Current Visit: Yes Status: Acute
[2017-04-21] MEDS ORDERED: CYANOCOBALAMIN 1000 MCG/1 ML VIAL IM SCH (11:00)
[2017-04-21 11:58] VITALS: TEMP 97.4
--- NOTE | 2017-04-22 11:25 | OT AM DAY ---
Diagnosis : Falls/T8 Compression Fracture AM - Occupational Therapy S: The patient states she is upset that no one came to get her earlier, even though therapy did stop in to check on her, but she was eating breakfast. O: The patient was seen in her room. She was transferred down to the gym by physical therapy. The patient performed upper extremity exercises with red theraband in all planes and ranges x15. We attempted to do the arm bike but this did not go so well as the transfer and the patient's participation was not going over so well, so the patient declined to do this. The patient was returned to her room by PT. The patient was left upright in chair with call light in place. Nursing was notified. A: The patient would continue to benefit from skilled therapy to maintain or increase her overall function and transfers. P: Patient will be discharged later today to [facility]. BRIGITTED
--- NOTE | 2017-04-22 12:01 | PT AM DAY ---
Diagnosis : Falls/T8 Compression Fracture AM - Physical Therapy S: The patient states she is feeling better this morning and would be willing to go to the therapy gym. O: The patient transferred to wheelchair and was wheeled to therapy gym where she used the NuStep x5 minutes. She then performed seated exercises including long arc quads, heel/toe raises, marches, ball squeezes, clamshells, and resisted knee flexion, all x10 bilaterally followed by sit to stands x10 . The patient then ambulated approximately 30 feet. The patient was wheeled back to her room and left in bed with alarm on and call light within reach. A: The patient tolerated exercises fair. She struggles with pain in her back and knees. The patient requires mod to max assist with bed transfers and requires verbal cues to stay on task and complete tasks. The patient would continue to benefit from skilled therapy to increase strength, mobility, and endurance. P: Continue seeing patient BID during the week and one time per day over the weekend until discharge. YI
== END 2017-04-21 14:25 | disposition home or self-care (01) | DRG 552 ==
LOC: ER 09:05 → ICU 11:49 → MED/SURG 11:49
PROVIDERS: ADMIT Family Medicine; ATTEND Family Medicine
DX: R53.1 Weakness (principal); W17.89XA Other fall from one level to another, initial encounter; M48.02 Spinal stenosis, cervical region; M48.50XA Collapsed vertebra, not elsewhere classified, site unspecified, initial encounter for fracture; I95.9 Hypotension, unspecified; E03.9 Hypothyroidism, unspecified; M19.90 Unspecified osteoarthritis, unspecified site; R79.89 Other specified abnormal findings of blood chemistry; Z91.81 History of falling
CPT/HCPCS: 36415; 70450; 71020; 73560; 80053; 80305; 81003; 82550; 82553; 82607; 82746; 83735; 84443; 84484; 85025; 86140; 93005; 93010; 94761; 97110; 97163; 97166; 97530; 97535; 99285; J1650; J3420; J7040; Q0163